=== PATIENT | female | born 1990 ===

== ENCOUNTER 2024-01-23 15:00 | Inpatient (IN) | payer OTHER ==
[~2024-01-23] VITALS: Ht 170.2 cm; Wt 116.6 kg
[2024-02-05] MEDS ORDERED: AMPICILLIN SODIUM 2,000 MG VIAL ONE (12:12)
[2024-02-05 12:25] LABS: HEMOGLOBIN 12.2 g/dL (12.0-15.00); MEAN CELL VOLUME 89.8 fL (80.00-100.00); MEAN CORPUSCULAR HEMOGLOBIN 30.3 pg (27.00-32.0); MEAN CORPUSCULAR HGB CONC 33.7 g/dl (32.0-36.0); PLATELET COUNT 160 K/uL (150-450); RED BLOOD COUNT 4.01 M/uL (4.00-6.00); RED CELL DISTRIBUTION WIDTH 13.6 % (11.5-14.5)
[2024-02-05 12:34] LABS: PH,URINE 6.5 (5.0-8.0); URINE APPEARANCE Clear; URINE BILIRRUBIN Negative (NEGATIVE); URINE BLOOD Large; URINE COLOR Yellow; URINE GLUCOSE Negative (NEGATIVE); URINE LEUKOCYTE Negative; URINE NITRATE Negative; URINE PROTEIN Trace (NEGATIVE)
[2024-02-05 12:37] LABS: URINE BACTERIA 396.8 uL (0.0-1933); URINE EPITHELIAL CELLS 13.2 uL (0.0-38.8); URINE RBC 4.3 uL (0.0-20.8); URINE WBC 11.5 uL (0.0-23.2)
[2024-02-05 12:59] LABS: INR < 0.93; PARTIAL THROMBOPLASTIN TIME 28.8 SECONDS (22.0-34.0); PROTHROMBIN TIME 9.8 SECONDS (9.0-11.5)
[2024-02-05 13:14] LABS: BILIRUBIN TOTAL 0.38 mg/dL (0.3-1.2); CALCIUM 9.6 mg/dL (8.5-10.1); CREATININE SERUM 0.56 mg/dL (0.55-1.02); GFR 126.26; GLOBULINA 3.7 G/DL (2.4-3.5); POTASSIUM 3.97 mEq/L (3.5-5.1); TOTAL PROTEIN 6.7 gm/dL (6.4-8.2)
[2024-02-05] MEDS ORDERED: ERYTHROMYCIN BASE 3.5 GM OINT...G. OP ONE (13:49)
[2024-02-05] MEDS ORDERED: OXYTOCIN 10 UNITS/ML VIAL ONE (13:49)
[2024-02-05] MEDS ORDERED: AMPICILLIN SODIUM 2,000 MG VIAL IV ONE (14:00)
[2024-02-05] MEDS ORDERED: CHLORHEXIDINE GLUCONATE 120 ML BOTTLE TOP ONE (14:18)
[2024-02-05] MEDS ORDERED: ERYTHROMYCIN BASE 1 GM TUBE OP ONE ×2 (14:20→15:00)
[2024-02-05] MEDS ORDERED: OXYTOCIN 10 UNITS/ML VIAL IV ONE (15:00)
[2024-02-05] MEDS ORDERED: AMPICILLIN SODIUM 1,000 MG VIAL IV SCH (17:00)
[2024-02-05] MEDS ORDERED: AMPICILLIN SODIUM 1,000 MG VIAL ONE (17:22)
[2024-02-05] MEDS ORDERED: MORPHINE SULFATE 4 MG/ML CARTRIDGE IV SCH (18:08)
[2024-02-05] MEDS ORDERED: KETOROLAC TROMETHAMINE 30 MG VIAL IV SCH (18:09)
[2024-02-05] MEDS ORDERED: DOCUSATE SODIUM 100MG CAP PO SCH (18:15)
[2024-02-06 05:22] LABS: HEMATOCRIT 30.6 % (36.0-45.00); HEMOGLOBIN 10.3 g/dL (12.0-15.00); MEAN CELL VOLUME 89.2 fL (80.00-100.00); MEAN CORPUSCULAR HEMOGLOBIN 30.1 pg (27.00-32.0); MEAN CORPUSCULAR HGB CONC 33.7 g/dl (32.0-36.0); PLATELET COUNT 136 K/uL (150-450); RED BLOOD COUNT 3.43 M/uL (4.00-6.00); RED CELL DISTRIBUTION WIDTH 13.7 % (11.5-14.5)
[2024-02-06] MEDS ORDERED: ACETAMINOPHEN 500 MG GEL..CAP PO SCH (06:00)
[2024-02-06] MEDS ORDERED: GABAPENTIN 300 MG CAPSULE PO SCH (09:00)
[2024-02-06] MEDS ORDERED: SIMETHICONE 125 MG CAPSULE PO SCH (09:00)
[2024-02-06] MEDS ORDERED: PNV,CALCIUM 72/IRON/FOLIC ACID 1 TAB TABLET PO SCH (09:00)
[2024-02-06] MEDS ORDERED: IBUprofen 600 MG TABLET PO SCH (12:00)
[2024-02-07] MEDS ORDERED: KETO10TA2 PO (10:14)
[2024-02-07] MEDS ORDERED: PERCOCET 5-3251 EACH PO (10:15)
== END 2024-02-07 11:44 | disposition home or self-care (01) | DRG 788 ==
LOC: OB/GYN 02-05 11:06 → O/R 02-05 11:06 → LDR 02-05 11:06 → O/R 02-05 14:26 → OB/GYN 02-05 17:09
PROVIDERS: Obstetrics & Gynecology Gynecology; ADMIT Obstetrics & Gynecology; ATTEND Obstetrics & Gynecology
PROC: 4A1HXCZ Monitoring of Products of Conception, Cardiac Rate, External Approach (ICD-10-PCS; 2024-02-05)
PROC: 10D00Z1 Extraction of Products of Conception, Low, Open Approach (ICD-10-PCS; principal; 2024-02-05 14:00)
DX: O82 Encounter for cesarean delivery without indication (principal); Z3A.39 39 weeks gestation of pregnancy; Z37.0 Single live birth; Z20.822 Contact with and (suspected) exposure to COVID-19

== ENCOUNTER 2024-01-30 11:18 | Outpatient (CLI) | payer OTHER | END 2024-01-30 12:02 | disposition home or self-care (01) | LOC: NST 11:18 | PROVIDERS: ATTEND Obstetrics & Gynecology | DX: Z34.83 Encounter for supervision of other normal pregnancy, third trimester (principal) ==

== ENCOUNTER 2024-02-03 11:36 | Outpatient (CLI) | payer OTHER | END 2024-02-03 12:54 | disposition home or self-care (01) | LOC: NST 11:36 | PROVIDERS: ATTEND Obstetrics & Gynecology Maternal & Fetal Medicine | DX: Z34.83 Encounter for supervision of other normal pregnancy, third trimester (principal) ==